=== PATIENT | male | born 1955 | race Caucasian/White ===

== ENCOUNTER → 2016-07-04 | Outpatient (CLI) | payer OTHER ==
[~2016-07-04] MED LIST: LIDOCAINE5 GM TOP; MOTRIN600 M2 PO; OMEPRAZOLE20 M2 PO; PERCOCET 5/321 UDTAB PO; VIAGRA PO; VOLTAREN75 MG PO
--- NOTE | ~2016-07-04 | EKG ---
PATIENT: AMBROSIO QUINTANILLA UNIT #: [id number] Ventricular Rate: 60 BPM Atrial Rate: 60 BPM P-R Interval: 144 ms QRS Duration: 82 ms Q-T Interval: 394 ms QTC Calculation(Bezet): 394 ms P [place]: 49 degrees Calculated R [place]: -2 degrees Calculated T [place]: 46 degrees Diagnosis Line: Normal sinus rhythm Diagnosis Line: Normal ECG Diagnosis Line: No previous ECGs available Diagnosis Line: Confirmed by RAVEN SOTO MD ([id number]) on 07/04/2016 Diagnosis Line: 4:17:33 PM INTERPRETING MD: CHARLES WILLS
[2016-07-04 14:24] LABS: HEMATOCRIT 48.6 % (38.0-50.0); HEMOGLOBIN 16.7 gm/dL (13.0-16.0); MEAN CELL VOLUME 88.2 FL (83-96); MEAN CORPUSCULAR HEMOGLOBIN 30.2 PG (28-34); MEAN CORPUSCULAR HGB CONC 34.3 g/dL (30-36); MEAN PLATELET VOLUME 8.3 FL (6.5-11.5); RED BLOOD COUNT 5.51 X10e (3.90-5.60); URINE APPEARANCE CLEAR; URINE BILIRUBIN NEG (NEG); URINE BLOOD NEG (NEG); URINE COLOR YELLOW; URINE GLUCOSE NEG (NEG); URINE KETONE NEG (NEG); URINE LEUKOCYTE ESTERASE NEG (NEG); URINE NITRATE NEG (NEG); URINE PH 5.5 (5-8); URINE PROTEIN NEG (NEG); URINE UROBILINOGEN 0.2 MG/DL (NEG); WHITE BLOOD COUNT 7.5 X10e3 (4.0-10.5)
[2016-07-04 14:26] LABS: URINE SOURCE CLEAN CATCH
[2016-07-04 14:32] LABS: CULTURE INDICATED? NO
[2016-07-04 14:49] LABS: ALBUMIN SERUM 4.5 g/dL (3.5-5.0); ALKALINE PHOSPHATASE 67 U/L (32-92); ALT (SGPT) 16 U/L (10-40); AST (SGOT) 24 U/L (10-42); BILIRUBIN,TOTAL 0.7 mg/dL (0.2-2.0); BLOOD UREA NITROGEN 14 mg/dL (9-23); CALCIUM SERUM 9.3 mg/dL (8.4-10.2); CARBON DIOXIDE 25 mmol/L (22-31); CHLORIDE 108 mmol/L (100-111); GLOM FILT RATE Estimated ABOVE60 mL/min (>60); GLUCOSE FASTING 100 mg/dL (70-110); POTASSIUM 4.1 mmol/L (3.5-5.1); PROTEIN TOTAL SERUM 6.9 g/dL (6.0-8.3); SODIUM 138 mmol/L (135-145)
== END | disposition home or self-care (01) ==
LOC: CAMB 13:34
PROVIDERS: Orthopaedic Surgery
DX: Z01.818 Encounter for other preprocedural examination (principal); T84.84XA Pain due to internal orthopedic prosthetic devices, implants and grafts, initial encounter; Z96.612 Presence of left artificial shoulder joint
CPT/HCPCS: 36415; 80053; 81003; 85027; 87070; 93005

== ENCOUNTER 2016-07-18 10:01 | Inpatient (IN) | payer OTHER ==
--- NOTE | ~2016-07-18 | CR229 ---
[facility] A Service of [facility] & [facility] RADIOLOGY TEXT RESULTS PATIENT: AMBROSIO QUINTANILLA LOCATION: [place] [address] : [birth year] UNIT #: [id number] AGE: [address]: Zohaib Echavarria MD SEX: M ORDER DR: [id number] [facility] [address] [facility]. [place], [place] [address] [id number] MR#: [id number] Acc #: [id number] NAME: AMBROSIO QUINTANILLA : 1955 SEX: M STUDY DATE/TIME: 07/18/2016 18:08 UNIT: [id number] ROOM: [facility] STUDY DESCRIPTION: CR Shoulder Min 2 View Lt Attending Physician: Zohaib Echavarria M.D. Referring Physician: Zohaib Echavarria M.D. Ordering Physician: Zohaib Echavarria M.D. Primary Care Physician: Elizabeth Willis M.D. MEDICAL IMAGING REPORT This report is preliminary unless electronic signature is present EXAM 3 views left shoulder 07/18/2016 COMPARISON June 22, 2016 HISTORY 61-year-old male immediately postop after left shoulder total arthroplasty. FINDINGS Degenerative facet disease is seen in the left neck. There are questionable arterial calcifications in the lower left neck as well. There is interval placement of a left shoulder total arthroplasty. There is cerclage wires along the humeral stem. No evidence of hardware complication. Prosthetic components are anatomically aligned. No evidence of acute bony fracture. Hardware appears intact. IMPRESSION Post left shoulder total arthroplasty. No convincing evidence of complication. Dictated by... Ivan Leach M.D. THIS IS AN ELECTRONICALLY VERIFIED REPORT Ivan Leach M.D. at 07/19/2016 4:12 PM Lauren TD: 07/18/2016 18:38 JOB #: [id number] MEDICAL IMAGING REPORT Page 1 of 1 COPY
--- NOTE | ~2016-07-18 | OR ---
Unit #: [id number] #: [id number] Patient: AMBROSIO QUINTANILLA [id number] [address] [address] [id number] I MR#: [id number] NAME: AMBROSIO QUINTANILLA. ROOM: 454 Date of Procedure: 07/18/2016 Admission Date: 07/18/2016 Surgeon: Zohaib Echavarria M.D. : 1955 Attending Physician: Zohaib Echavarria M.D. Referring Physician: Zohaib Echavarria M.D. Primary Care Physician: Elizabeth Willis M.D. OPERATIVE REPORT PREOPERATIVE DIAGNOSIS Painful left total shoulder arthroplasty with loose glenoid component. POSTOPERATIVE DIAGNOSIS Painful left total shoulder arthroplasty with loose glenoid component. PROCEDURES PERFORMED 1. Left revision reverse shoulder arthroplasty. 2. Humeral osteotomy with subsequent cerclage wire fixation for stem extraction. IMPLANTS 1. Fransico Biomet Comprehensive reverse glenoid 25 mm mini baseplate 6.5 x 20 mm central screw, and four peripheral locking screws including a 15 mm x2, 20 mm, and 25 mm. 2. Fransico Biomet comprehensive 36 mm, +6 glenosphere with "A" offset. 3. DJO Surgical size 8 AltiVate cemented humeral stem with an +8 spacer and a 36, +4 humeral socket liner. 4. Synthes 1.0 mm cable x4. SAW REPAIRER Adamaris Roque APRN, RNFA. ANESTHESIA General with interscalene nerve block. ESTIMATED BLOOD LOSS 200 mL. COMPLICATIONS Intraoperative fracture of the greater tuberosity during stem extraction, subsequently fixed with a FiberWire x2, FiberTape x1, and cerclage cable x1. DRAINS Medium Hemovac x1. SPECIMENS 1. Frozen section sent to microbiology, which yielded 1 to 2 neutrophils per high-power field. 2. Multiple tissue cultures to Pathology. Unit #: [id number] #: [id number] Patient: AMBROSIO QUINTANILLA INDICATIONS FOR PROCEDURE Mr. Jennings is a 61-year-old gentleman, who underwent a left total shoulder arthroplasty 16 years previously. He now has a painful left shoulder arthroplasty. The glenoid component is displaced actually posterior and superior to the humeral component. He has had significant medialization of the joint line with substantial amount of medial glenoid wear and possible cavitary defect of the glenoid. We have discussed revision to reverse shoulder arthroplasty. His rotator cuff appears incompetent or torn as well as the humeral component is abutting the coracoid. We have discussed possible conversion of the humeral stem versus extraction as it appears that his stem may be nonconvertible. We discussed risks, benefits, and alternatives including possible inability to place a baseplate as well as postoperative dislocation and infection among others. DESCRIPTION OF PROCEDURE The patient was identified in the preoperative holding area. The operative site was marked. A regional anesthetic block was performed. Preoperative antibiotics were administered. The patient was brought to the operating room and placed supine on the operating table. A general anesthetic was induced. The patient was positioned in the beach-chair position. The left upper extremity was prepped and draped in sterile fashion. The previous surgical incision was reopened. Dissection was carried down through the subcutaneous tissues. The deltopectoral interval was identified and redeveloped. The cephalic vein was not identified in the plane of dissection. The subdeltoid space was developed and the deltoid released from adhesions along the lateral border of the humerus. The medial soft tissues were scarred in one large sleeve. The pectoralis major was dissected free from the underlying conjoined tendon. Deep to this, the subscapularis was not identifiable. There was no discernible subscap tissue. The subdeltoid and subacromial space was developed and then the bicipital groove identified. This was opened up to the pseudocapsular tissue around the anterior aspect of the implant. This was opened and a large volume of fluid was expressed. This was then cultured. An intraoperative leukocyte esterase test was performed and was negative. The medial soft tissues were then taken down as a sleeve and a direct peel off bone and the shoulder dislocated anteriorly. There was questionable appearing tissue around the trunnion of the component which was removed and sent for frozen section as well as some for culture. Once we had fully exposed the shaft of the humerus circumferentially proximally, attention was turned to removal of the humeral head. There was no typical Paulino taper. A tuning fork type device was not able to be employed for head removal. Multiple strikes with a stem extractor were used and the head was associated. It was during the association of the head actually that the greater tuberosity fractured off posteriorly. Careful dissection was carried out around the implant, which was well fixed. Osteotomes were used to circumferentially disrupt the bone implant interface. This is still insufficient for stem removal. Ultimately, this required an osteotomy for stem extraction. The skin incision was extended further into the deltoid and pec released further distally to ultimately disrupt the bone implant interface sufficiently to extract the stem. The humerus was intact without any further fracture. Three cerclage cables were passed around the humerus taking care to avoid injury to the radial nerve posteriorly. These were then provisionally tightened. A broach was placed in the humerus and the humeral canal to protect this while preparation of the glenoid. Unit #: [id number] #: [id number] Patient: AMBROSIO QUINTANILLA Attention was then turned to glenoid. There was significant medialization of the glenoid. There was cement plug still in the central portion of the glenoid, as well as one of the peripheral peg holes. It should also be noted that prior to this during our dissection of the humerus, the glenoid component was identified in the subdeltoid space. This was retrieved easily with a pickups. The cement was removed from the humerus with a curved quarter-inch osteotome in one piece. However, there was still a large central cavitary defect from the prior implant. This defect was such that it was felt that a Biomet baseplate would be best to address the cavitary bone loss without need for supplemental allograft. We therefore elected to use a Biomet baseplate, which would later be made it through a DJO surgical humeral stem. The center hole was drilled and then we reamed over the centering guide pin. This did achieve some purchase with our reaming and therefore we were able to use the mini baseplate rather than move up to the standard baseplate. The mini was impacted in place and did achieve good purchase. The guidepin was removed and then the central screw placed. The central screw had minimal purchase in bone. Four peripheral locking screws were placed measuring 15 superiorly and posteriorly and a 25 inferiorly and a 20 anteriorly. The baseplate was stable with this fixation. We then placed a 36, +6 glenosphere at the central offset or at the A position. Attention was then turned back to the humerus. Given the humeral osteotomy, we elected to cement the component. The standard length implant gave us nearly approximately two cortical diameters beyond our osteotomy site, therefore a long stem was not felt to be necessary. We sized the canal to a size 12 and placed a size 12 cement restrictor. The humeral canal was prepared for cementing. We trialed provisionally with a size 8 broach, as a 10 was fairly proud. We then opened and cemented in place the size 8 DJO AltiVate stem in the desired retroversion, so we then trialed multiple combinations ultimately selecting a size 8 spacer and a +4 humeral socket adapter for a total of +12 buildup. This was due primarily to the significant medialization of the joint line on the glenoid side. The shoulder was reduced and unstable. The greater tuberosity fracture had been tagged with sutures following a two FiberWire sutures and one FiberTape suture. These were taken through suture holes in the stem. A cerclage cable additionally was passed through the infraspinatus muscle around the fragment and around the medial calcar tensioned with the other cables. The greater tuberosity repair was stable. Finally, with the shoulder reduced, the cables were all re-tensioned and crimped and cut. The arm was taken through range of motion, again was stable with a slight abduction deficit. This was however preferable to downsizing to +8, which was slightly looser at high risk for dislocation. Therefore, we accepted the abduction deficit. The wound was then irrigated with dilute Betadine wash followed by pulsatile lavage. A medium Hemovac drain was placed. The wound was then closed in a layered fashion with 0 Vicryl in the deltopectoral interval and 2-0 Vicryl in the subcutaneous tissue, and a running 4-0 Monocryl in the skin. Steri-Strips and sterile dressings were applied. The patient was placed in a shoulder immobilizer. DISPOSITION Stable to the recovery room. Dictated by... Zohaib Echavarria M.D. Unit #: [id number] #: [id number] Patient: AMBROSIO QUINTANILLA KADEEM/gunner TD: 07/19/2016 04:43 JOB #: [id number] OPERATIVE REPORT Page 1 of 1 X Zohaib Echavarria MD PROCEDURE OPERATIVE NOTE
--- NOTE | ~2016-07-18 | DS ---
Unit #: [id number] #: [id number] Patient: AMBROSIO QUINTANILLA [id number] [address] [place], [place] [address] [id number] MR#: [id number] NAME: AMBROSIO QUINTANILLA ROOM: 454 Age: 61 Sex: M Admission Date: 07/18/2016 : 1955 Discharge Date: 07/19/2016 Attending Physician: Zohaib Echavarria M.D. Referring Physician: Zohaib Echavarria M.D. Primary Care Physician: Elizabeth Willis M.D. DISCHARGE SUMMARY ADMITTING DIAGNOSIS Painful left total shoulder arthroplasty. DISCHARGE DIAGNOSES 1. Painful left total shoulder arthroplasty. 2. Status post left reverse shoulder arthroplasty. SECONDARY DIAGNOSIS Include gastroesophageal reflux disease. PROCEDURE On 07/18/2016, the patient underwent a left revision reverse shoulder arthroplasty. Please see operative report for full details. BRIEF HISTORY Mr. Phelps is a patient who had a left total shoulder arthroplasty from an outside facility approximately 16 years ago. This has become very painful for him, so he was seen by Dr. Echavarria for treatment options. Dr. Echavarria recommended a left revision reverse shoulder arthroplasty. The risks, benefits, and alternatives were discussed with the patient. He elected to proceed with surgery on 07/18/2016. HOSPITAL COURSE On the night of surgery, the patient was transferred to the orthopedic unit for postoperative care. The patient remained stable overnight. On postop day #1, the patient's vital signs remained stable. He is awake, alert, and oriented x3, in no acute distress. He was complaining of some left shoulder pain, but this was controlled with his current pain medications. His incision was clean, dry, and intact with no surrounding erythema, warmth, or hematoma. He has a small amount of serosanguineous drainage in his Hemovac drain. He had 100 mL of his Hemovac drain overnight. This was discontinued in room today. He was neurovascularly intact in the median, ulnar, and radial nerves. He had normal sensation to light touch in all 5 digits. His white blood cell count was 9.7 and hemoglobin was 14.5. He is nonweightbearing of the left upper extremity in a sling. He will work up physical therapy and pendulum as well as range of motion of the elbow, wrist, and hand. He is on aspirin and SCDs for DVT prophylaxis. Cultures were taken intraoperatively of the left shoulder. These are pending at this time. We will continue to follow these after his discharge. X-rays of the left shoulder taken postoperatively revealed that he is status post revision of left reverse Unit #: [id number] #: [id number] Patient: AMBROSIO QUINTANILLA shoulder arthroplasty. Hardware remains in correct anatomical alignment. CONDITION AT DISCHARGE Stable. DISPOSITION The patient will be discharged home, will get a sling that would help with postoperative care. POSTOPERATIVE MEDICATIONS Include omeprazole 20 mg p.o. daily, Percocet 5/325 mg 1 to 2 tablets p.o. q.4 hours p.r.n., dispensed #65. The patient was sent home with a prescript for this. DISCHARGE INSTRUCTIONS The patient will be discharged home once cleared by physical therapy. He will also follow up in the office in 2 weeks for repeat x-rays of the left shoulder. He will remain nonweightbearing of the left upper extremity and is in a sling. He may remove the sling 2 or 3 times per day to perform pendulum and range of motion of the elbow, wrist, and hand. He will perform daily dressings to the left upper extremity incision. He may shower, but he is not to get his incision wet. He will keep an occlusive dressing over the incision site when showering. Dictated by... Quita Augustine APRN for Jason Valdez/gunner TD: 07/19/2016 09:15 JOB #: [id number] DISCHARGE SUMMARY Page 1 of 1 X QUITA AUGUSTINE APRN X DISCHARGE SUMMARY
[~2016-07-18 10:01] MED LIST changes: -LIDOCAINE5 GM TOP; -PERCOCET 5/321 UDTAB PO
[2016-07-18 17:40] LABS: BF TOTAL NUCLEATED CELL COUNT 11 CMM (0-100); BODY FLUID APPEARANCE BLOODY; BODY FLUID SOURCE SYNOVIAL
[2016-07-18 17:43] LABS: BODY FLUID RBC 7922 CMM
[2016-07-18 17:56] LABS: BF TOTAL NUCLEATED CELL COUNT 11 CMM (0-100); BODY FLUID APPEARANCE BLOODY; BODY FLUID SOURCE SYNOVIAL
[2016-07-18 17:57] LABS: BODY FLUID RBC 47535 CMM
[2016-07-18] MEDS ORDERED: LIDOCAINE5 GM TOP (20:57)
[2016-07-19 04:18] LABS: BASOPHIL% 0.5 % (0-2.5); EOSINOPHIL% 0.4 % (0.0-7.0); HEMATOCRIT 42.7 % (38.0-50.0); HEMOGLOBIN 14.5 gm/dL (13.0-16.0); LYMPHOCYTE# 1.2 X10e3 (1.0-3.5); LYMPHOCYTE% 12.3 % (17.0-45.0); MEAN CELL VOLUME 89.6 FL (83-96); MEAN CORPUSCULAR HEMOGLOBIN 30.5 PG (28-34); MONOCYTE# 0.8 X10e3 (0-1.0); MONOCYTE% 7.8 % (3.0-12.0); NEUTROPHIL# 7.6 X10e3 (1.5-7.1); PLATELET COUNT 184 X10e3 (140-420); RED BLOOD COUNT 4.77 X10e (3.90-5.60); WHITE BLOOD COUNT 9.7 X10e3 (4.0-10.5)
[2016-07-19 04:19] LABS: DIFF IND NO
[2016-07-19] MEDS ORDERED: PERCOCET 5/321 UDTAB PO (14:47)
== END 2016-07-19 16:05 | disposition home or self-care (01) | DRG 483 ==
LOC: CSUR 10:01 → CPACUOF 18:00 → C4B 18:55
PROVIDERS: Orthopaedic Surgery
PROC: 0RPK0JZ Removal of Synthetic Substitute from Left Shoulder Joint, Open Approach (ICD-10-PCS; 2016-07-18)
PROC: 0RRK00Z Replacement of Left Shoulder Joint with Reverse Ball and Socket Synthetic Substitute, Open Approach (ICD-10-PCS; principal; 2016-07-18 12:30)
DX: T84.84XA Pain due to internal orthopedic prosthetic devices, implants and grafts, initial encounter (principal); T84.038A Mechanical loosening of other internal prosthetic joint, initial encounter; Z96.612 Presence of left artificial shoulder joint; Z82.5 Family history of asthma and other chronic lower respiratory diseases; Z81.1 Family history of alcohol abuse and dependence; Y79.2 Prosthetic and other implants, materials and accessory orthopedic devices associated with adverse incidents; K21.9 Gastro-esophageal reflux disease without esophagitis; F17.210 Nicotine dependence, cigarettes, uncomplicated
CPT/HCPCS: 73030; 85025; 87070; 87075; 87205; 88305; 88331; 89051; 94760; 97116; 97161; 97530; C1713; C1776; J0131; J0690; J2250; J2270; J2405; J2710; J2795; J3010